=== PATIENT | male | born 1945 | race Caucasian/White ===

== ENCOUNTER → 2016-08-01 | Outpatient (CLI) | payer OTHER | LOC: BHFA 08:30 | PROVIDERS: ATTEND Internal Medicine Cardiovascular Disease | DX: I34.0 Nonrheumatic mitral (valve) insufficiency (principal) ==

== ENCOUNTER → 2016-08-12 | Outpatient (CLI) | payer OTHER | LOC: BHFA 09:45 | PROVIDERS: ATTEND Internal Medicine Cardiovascular Disease | DX: I71.2 Thoracic aortic aneurysm, without rupture (principal); I10 Essential (primary) hypertension; I48.91 Unspecified atrial fibrillation; I48.92 Unspecified atrial flutter ==

== ENCOUNTER 2016-09-05 07:33 | Day surgery (SDC) | payer OTHER ==
[2016-09-05] MEDS ORDERED: fentaNYL 100 MCG/2 ML INJ IVP ONE (07:38)
[2016-09-05] MEDS ORDERED: PROPOFOL 200 MG/20 ML VIAL IVP ONE (07:38)
[2016-09-05] MEDS ORDERED: MIDAZOLAM 2 MG/2 ML VIAL IVP ONE (07:38)
[2016-09-05] MEDS ORDERED: NS 500 ML IV ONE (07:38)
--- NOTE | 2016-09-05 07:55 | CPEKG ---
Heart Rate: 56 RR Interval: 1071 QRSD Interval: 74 QT Interval: 424 QTC Interval: 410 QRS Troy: 45 T Wave Troy: 40 EKG Severity - ABNORMAL ECG - EKG Impression: ATRIAL FIBRILLATION EKG Impression: LOW VOLTAGE IN FRONTAL LEADS EKG Impression: Agree with above. Electronically Signed By: Salazar Hall 05-Sep-2016 16:12:09
[2016-09-05 08:27] LABS: INR 1.26 (0.83-1.16); PROTIME(PATIENT) 15.8 SEC (12.0-15.0)
[2016-09-05 08:28] LABS: APTT 35.2 SEC (23.0-38.0)
[2016-09-05 08:29] LABS: ANION GAP 9 mEq/L (8-16); CALCIUM 9.7 mg/dL (8.5-10.4); CARBON DIOXIDE 28 mEq/l (22-31); CHLORIDE 106 mEq/L (97-110); CREATININE 0.9 mg/dL (0.7-1.3); GLOMERULAR FILTRATION RATE > 60; GLUCOSE 105 mg/dL (70-100); MAGNESIUM 2.1 mg/dL (1.6-2.3); POTASSIUM 4.6 mEq/L (3.5-5.2); SODIUM 143 mEq/L (134-144)
[2016-09-05] MEDS ORDERED: ATROPINE SULFATE 1 MG/10 ML SYR ONE (08:48)
--- NOTE | 2016-09-05 09:03 | PDANEPAE ---
ANE History of Present Illness Atrial arrythmia ANE Past Medical History - Cardiovascular History Hx Arrhythmias: Yes - Pulmonary History Hx Oxygen in Use at Home: No Hx Sleep Apnea: Yes - Neurologic History Neurologic History Comment: multiple sclerosis - Endocrine History Hx Diabetes: No Hypothyroid: No Hyperthyroid: No Obesity: yes - Renal History Hx Renal Disorders: Yes Renal History Comment: BPH - Chronic Pain History Chronic Pain: No ANE Patient History - Allergies Allergies/Adverse Reactions: No Known Allergies Allergy (Unverified 02/23/11 16:28) - Home Medications Home Medications: Baclofen [Baclofen 10 mg (*)] 10 mg PO TID 07/02/13 [Last Taken 07/02/13 08:00] Cholecalciferol Vit D3 [Vitamin D3 (*)] 2,000 units PO DAILY 07/02/13 [Last Taken 07/02/13 08:00] Dalfampridine [AMPYRA] 10 mg PO BID 07/02/13 [Last Taken 07/02/13 08:00] Lisinopril [Zestril 40 mg (*)] 40 mg PO DAILY 07/02/13 [Last Taken 07/02/13 08: 00] CALCIUM 09/04/16 [Last Taken Unknown] Detrol 09/04/16 [Last Taken Unknown] Flomax 09/04/16 [Last Taken Unknown] Multivitamin 09/04/16 [Last Taken Unknown] Pradaxa 09/04/16 [Last Taken Unknown] Rituxan 09/04/16 [Last Taken Unknown] Vitamin C 09/04/16 [Last Taken Unknown] - Smoking Hx Smoking Status: Former smoker ANE Labs/Vital Signs - Labs Result Diagrams: 09/05/16 08:00 - Vital Signs Height: 187.96 cm Weight: 92.986 kg ANE Anesthesia Plan Anesthesia Plan: MAC (IVGA/MAC)
[2016-09-05] MEDS ORDERED: LIDOCAINE 2% 100 MG/5 ML SYR ONE (09:15)
[2016-09-05] MEDS ORDERED: PROPOFOL 200 MG/20 ML VIAL ONE (09:15)
--- NOTE | 2016-09-05 10:03 | CPEKG ---
Heart Rate: 67 RR Interval: 896 P-R Interval: 369 QRSD Interval: 78 QT Interval: 456 QTC Interval: 482 P Saucier: 40 QRS Saucier: 32 T Wave Saucier: 24 EKG Severity - ABNORMAL ECG - EKG Impression: SINUS RHYTHM EKG Impression: SUPRAVENTRICULAR BIGEMINY EKG Impression: FIRST DEGREE AV BLOCK EKG Impression: Resolution of atrial fibrillation since September 05, 2016, 7:53 Electronically Signed By: Salazar Hall 05-Sep-2016 16:11:49
--- NOTE | 2016-09-05 10:10 | POSTANESTH ---
Post Anesthetic Evaluation Cardiovascular Status: Other, See Comment Respiratory Status: Normal, Stable Level of Consciousness/Mental Status: Can Participate in Eval Pain Control: Adequate, Prn Tx Ordered Nausea/Vomiting Control: Adequate, Prn Tx Ordered Complications Possibly Related to Anesthesia: None Noted (sinus bradycardia with PACs)
[2016-09-05] MEDS ORDERED: DABIGATRAN ETEXILATE MESYL 150 MG CAP PO ONE (10:15)
--- NOTE | 2016-09-05 13:03 | ECHO ---
[id number] + + [address] : : [facility] [address] : : [phone] + + Adult Echocardiographic Report + ------+ :Name: CHRISTINA LOPEZ DStudy Date: 09/05/2016 11:37 AM : : Hospital Admission Number: [id number] Locatio n: CVC: :: 1945 Gender: Male : :Age: 70 yrs Race: WH : :Reason For Study: Eval LV Fx : :History: Pre Cardioversion : + ------+ Left Ventricle The left ventricular ejection fraction is normal. Atria No left atrial mass or thrombus visualized. No thrombus is detected in the left atrial appendage. Right atrial size is normal. Injection of contrast documented no interatrial shunt. Mitral Valve The mitral valve is normal. There is moderate mitral regurgitation. Tricuspid Valve Normal tricuspid valve. There is trace tricuspid regurgitation. Aortic Valve The aortic valve is normal in structure and function. The aortic valve is trileaflet. There is no aortic stenosis. There is no aortic insufficiency. Pulmonic Valve The pulmonic valve is normal in structure and function. There is no pulmonic valvular regurgitation. Great Vessels The aortic root is normal size. Pericardium/Pleural There is no pericardial effusion. Conclusion A complete two-dimensional transthoracic echocardiogram was performed (2D, M-mode, Doppler and color flow Doppler). The left ventricular ejection fraction is normal. No left atrial mass or thrombus visualized. No thrombus is detected in the left atrial appendage. Injection of contrast documented no interatrial shunt. There is moderate mitral regurgitation. There is trace tricuspid regurgitation. The aortic valve is normal in structure and function. The aortic valve is trileaflet. There is no pericardial effusion. Final Reading Physician: Dr Yessenia Rodrigez electronically signed on 09/05/2016 01:02 PM Ordering Physician: Yessenia Rodrigez Performed By: Dr Yessenia Rodrigez
--- NOTE | 2016-09-05 19:33 | CPIP ---
[f rep st] INVASIVE CARDIAC PROCEDURE DATE OF PROCEDURE: 09/05/2016 PROCEDURE: Transesophageal echocardiogram-guided cardioversion. INDICATIONS: Atrial flutter. COMPLICATIONS: None apparent. DESCRIPTION OF PROCEDURE: N.p.o. status was confirmed, informed consent obtained, and time-out perf ormed. Sedation was provided by Dr. Penaloza of the anesthesia service. The IDA probe was passe d without difficulty. Images obtained. Please see separate report. In summary, normal LV systolic function. Moderate mitral regurgitation. Trace tricuspid regurgitation. Normal aortic valve. No intracardiac thrombus. No intra-atrial communication. We elected to proceed with cardioversion. The patient received a single 200 joule shock which conve rted him from atrial flutter to sinus bradycardia with PACs. A 12-lead EKG is pending. CONCLUSION: 1. Successful IDA-guided cardioversion. 2. Continue Pradaxa. 3. A 24-hour Holter monitor to ensure that he does not have significant bradycardia. 4. Follow up as scheduled. 5. The results were discussed with the patient's . /[id number]/MODL
== END 2016-09-05 11:00 | disposition home or self-care (01) ==
LOC: FCATH 07:33
PROVIDERS: ATTEND Internal Medicine Cardiovascular Disease
DX: I48.92 Unspecified atrial flutter (principal); I48.0 Paroxysmal atrial fibrillation; G35 Multiple sclerosis; I10 Essential (primary) hypertension; G47.33 Obstructive sleep apnea (adult) (pediatric); Z86.711 Personal history of pulmonary embolism; I34.0 Nonrheumatic mitral (valve) insufficiency; I36.1 Nonrheumatic tricuspid (valve) insufficiency
CPT/HCPCS: J0461; J2001; J2704

== ENCOUNTER → 2016-09-12 | Outpatient (CLI) | payer OTHER | LOC: BHFA 14:45 | PROVIDERS: ATTEND Internal Medicine Cardiovascular Disease | DX: I71.2 Thoracic aortic aneurysm, without rupture (principal); I10 Essential (primary) hypertension; I48.91 Unspecified atrial fibrillation ==

== ENCOUNTER → 2017-08-16 | Outpatient (CLI) | payer OTHER | LOC: FIMAGING 15:29 | PROVIDERS: ATTEND Neurological Surgery | DX: M48.061 Spinal stenosis, lumbar region without neurogenic claudication (principal); M53.86 Other specified dorsopathies, lumbar region ==

== ENCOUNTER → 2017-08-25 | Outpatient (CLI) | payer OTHER | LOC: BHFA 14:00 | PROVIDERS: ATTEND Internal Medicine Interventional Cardiology | DX: Z01.818 Encounter for other preprocedural examination (principal); I38 Endocarditis, valve unspecified; I48.92 Unspecified atrial flutter ==

== ENCOUNTER → 2017-08-26 | Outpatient (CLI) | payer OTHER | LOC: BHFA 09:15 | PROVIDERS: ATTEND Internal Medicine Cardiovascular Disease | DX: I34.0 Nonrheumatic mitral (valve) insufficiency (principal) ==

== ENCOUNTER 2017-09-03 07:30 | Inpatient (IN) | payer OTHER ==
--- NOTE | 2017-09-03 06:38 | PDHPUP ---
History & Physical Update H&P update statement: This history and physical update is based on an assessment of the patient which was completed after admission or registration (within 24 hours), but prior to the surgery/procedure. H&P update: H&P reviewed & patient examined, no change in patient's condition since H&P completed
[2017-09-03] MEDS ORDERED: CHLORHEXIDINE GLUC HIBICLENS 118 ML BTL TP ONE (11:18)
[2017-09-03] MEDS ORDERED: BUPIVACAINE 0.25% 30 ML SDV ONE (11:18)
[2017-09-03] MEDS ORDERED: THROMBIN (BOVINE) 5,000 UNIT VIAL TP ONE (11:18)
[2017-09-03] MEDS ORDERED: BACITRACIN 50,000 UNITS/10 ML SYR IRR ONE (11:19)
[2017-09-03] MEDS ORDERED: EPINEPHrine 1 MG/ML INJ ONE (11:19)
[2017-09-03] MEDS ORDERED: GABAPENTIN 300 MG CAP PO ONE (11:39)
[2017-09-03] MEDS ORDERED: ceFAZolin 2 GM/DEXTROSE 100 ML IV ONE (11:39)
[2017-09-03] MEDS ORDERED: ACETAMINOPHEN 500 MG TAB PO ONE (11:39)
[2017-09-03] MEDS ORDERED: LIDOCAINE 1% 2 ML INJ ID PRN (11:40)
[2017-09-03] MEDS ORDERED: LR 1,000 ML IV ONE (11:40)
--- NOTE | 2017-09-03 12:08 | PDANEPAE ---
ANE Past Medical History - Cardiovascular History Hx Hypertension: Yes Hx Arrhythmias: Yes Hx Chest Pain: No Hx Coronary Artery / Peripheral Vascular Disease: No Hx CHF / Valvular Disease: No Hx Palpitations: No Cardiovascular History Comment: A-FIB. MILD AAA - Pulmonary History Hx COPD: No Hx Asthma/Reactive Airway Disease: No Hx Recent Upper Respiratory Infection: No Hx Oxygen in Use at Home: No O2 in Use at Home (L/minute): yes Hx Sleep Apnea: Yes Pulmonary History Comment: JUAN ANTONIO INSTRUCTED TO BRING DOS WHAT APPARATUS HE USES AT HOME. PE 2013 - Neurologic History Hx Cerebrovascular Accident: No Hx Seizures: No Hx Dementia: No Neurologic History Comment: multiple sclerosis - Endocrine History Hx Diabetes: No Hypothyroid: No Hyperthyroid: No Obesity: no - Renal History Hx Renal Disorders: Yes Renal History Comment: BPH - Liver History Hx Hepatic Disorders: No - Neurological & Psychiatric Hx Hx Neurological and Psychiatric Disorders: Yes Neurological / Psychiatric History Comment: multiple sclerosis - Cancer History Hx Cancer: No - Congenital Disorder History Hx Congenital Disorders: No - GI History GERD: no Hx Gastrointestinal Disorders: No - Other Health History Other Health History: CERVICAL STENOSIS. MULTIPLE SCLEROSIS. RESTLESS LEG. OSTEOPENIA. BRUISES EASILY - Chronic Pain History Chronic Pain: No - Surgical History Prior Surgeries: ING HERNIA. LAUREN RTC REPAIR. RT KNEE SCOPE. LT PATELLA TENDON REPAIR ANE Review of Systems Review of Systems: - Exercise capacity METS (RN): 3 METS ANE Patient History - Allergies Allergies/Adverse Reactions: No Known Allergies Allergy (Unverified 02/23/11 16:28) - Home Medications Home Medications: riTUXimab [Rituxan 500mg (*)] 1 ea IV Q180D 09/04/16 [Last Taken 03/12/17] Baclofen [Baclofen 10 mg (*)] 20 mg PO TID PRN 08/21/17 [Last Taken 1 Day Ago ~ 09/02/17] Cholecalciferol Vit D3 [Vitamin D3 (*)] 1,000 units PO DAILY 08/21/17 [Last Taken 1 Week Ago ~08/27/17] Dabigatran Etexilate Mesyl [Pradaxa 150 MG (*)] 150 mg PO BID 08/21/17 [Last Taken 8 Days Ago ~08/26/17] Dalfampridine [Ampyra] 10 mg PO BID 08/21/17 [Last Taken Unknown] Herbals/Supplements -Info Only 1 ea PO DAILY 08/21/17 [Last Taken 1 Week Ago ~] Lisinopril [Zestril 20 mg (*)] 20 mg PO DAILY 08/21/17 [Last Taken 09/03/17] Mirabegron [Myrbetriq] 50 mg PO DAILY 08/21/17 [Last Taken 1 Day Ago ~09/02/17] Tamsulosin HCl [Flomax 0.4 MG (*)] 0.4 mg PO DAILY 08/21/17 [Last Taken 2 Days Ago ~09/01/17] - Anes Hx Anes Hx: no prior problems - Smoking Hx Smoking Status: Former smoker Marijuana use: No - Alcohol Use Alcohol Use: Rarely - Family Anes Hx Family Anes Hx: neg - N/A Family Hx Anesthesia Complications: NEG ANE Labs/Vital Signs - Vital Signs Height: 187.96 cm Weight: 90.718 kg ANE Physical Exam - Airway Neck exam: decreased ROM Mallampati Score: Class 3 Mouth exam: normal dental/mouth exam - Pulmonary Pulmonary: no respiratory distress, no rales or rhonchi, clear to auscultation - Cardiovascular Cardiovascular: no murmur, rub, or gallop, other (Regular rate, irregular rhythym) - ASA Status ASA Status: III ANE Anesthesia Plan Anesthesia Plan: general endotracheal anesthesia Lines/Monitors: arterial line Total IV Anesthesia: No
[2017-09-03] MEDS ORDERED: METHOCARBAMOL 750 MG TAB PO PRN (12:51)
[2017-09-03] MEDS ORDERED: ONDANSETRON 4 MG/2 ML VIAL IVP PRN ×2 (12:51→15:47)
[2017-09-03] MEDS ORDERED: morphINE PCA 30 MG/30 ML PCA IV PRN (12:51)
[2017-09-03] MEDS ORDERED: NALOXONE HCL 0.4 MG/ML INJ IVP PRN ×2 (12:51→15:47)
[2017-09-03] MEDS ORDERED: MAGNESIUM HYDROXIDE 30 ML UDCUP PO PRN (12:51)
[2017-09-03] MEDS ORDERED: HYDROmorphONE/DILAUDID 1 MG/ML INJ IVP PRN ×2 (12:51→15:47)
[2017-09-03] MEDS ORDERED: BISACODYL 10 MG SUPP PR PRN (12:51)
[2017-09-03] MEDS ORDERED: diphenhydrAMINE 25 MG CAP PO PRN (12:51)
[2017-09-03] MEDS ORDERED: POLYETHYLENE GLYCOL 3350 17 GM PKT PO PRN (12:51)
[2017-09-03] MEDS ORDERED: ONDANSETRON DISINTEGRATING 4 MG TAB PO PRN (12:51)
[2017-09-03] MEDS ORDERED: ZOLPIDEM TARTRATE 5 MG TAB PO PRN (12:51)
[2017-09-03] MEDS ORDERED: LACTULOSE 20 GM/30 ML UDCUP PO PRN (12:51)
[2017-09-03] MEDS ORDERED: HYDROCODONE/APAP 5/325 TAB PO PRN ×2 (12:51→15:47)
[2017-09-03] MEDS ORDERED: NS 1,000 ML IV SCH (13:00)
[2017-09-03] MEDS ORDERED: PROPOFOL 200 MG/20 ML VIAL ONE (13:01)
[2017-09-03] MEDS ORDERED: fentaNYL 100 MCG/2 ML INJ ONE (13:01)
[2017-09-03] MEDS ORDERED: PROPOFOL/EMULSION 500 MG/50 ML BOTTLE IV ONE (13:01)
[2017-09-03] MEDS ORDERED: REMIFENTANIL HCL 1 MG VIAL ONE ×2 (13:01→15:09)
[2017-09-03] MEDS ORDERED: ONDANSETRON 4 MG/2 ML VIAL ONE (13:06)
[2017-09-03] MEDS ORDERED: DEXAMETHASONE 4 MG/ML VIAL ONE (13:06)
[2017-09-03] MEDS ORDERED: SUCCINYLCHOLINE CHLORIDE 200 MG/10 ML SYR IVP ONE (13:06)
[2017-09-03] MEDS ORDERED: LIDOCAINE 2% 5 ML SDV ONE ×2 (13:07→13:08)
[2017-09-03] MEDS ORDERED: PHENYLEPHRINE HCL 100 MCG/ML SYR ONE (13:36)
[2017-09-03] MEDS ORDERED: ePHEDrine SULFATE 25 MG/5 ML SYR ONE ×2 (13:44→14:10)
[2017-09-03] MEDS ORDERED: GLYCOPYRROLATE 0.2 MG/1 ML VIAL ONE ×2 (13:57)
--- NOTE | 2017-09-03 14:58 | PDMN ---
Medical Necessity Medical necessity: Pt meets IP criteria per PA & MCG S-320; est los >2 mn s/p C3 /4 ACDF cpt 82689; comorbid age >65 y.o, Afib/flutter, AAA, MS, PE, HTN, fall risk; per H&P & order 09/03/17
[2017-09-03] MEDS ORDERED: ACETAMINOPHEN 500 MG TAB PO PRN (15:47)
[2017-09-03] MEDS ORDERED: PROMETHAZINE HCL 25 MG/ML INJ IVP PRN (15:47)
[2017-09-03] MEDS ORDERED: fentaNYL 100 MCG/2 ML INJ IVP PRN (15:47)
[2017-09-03] MEDS ORDERED: PHENYLEPHRINE HCL 100 MCG/ML SYR IVP PRN (15:47)
[2017-09-03] MEDS ORDERED: LR 500 ML IV PRN (15:47)
[2017-09-03] MEDS ORDERED: oxyCODONE IR 5 MG TAB PO PRN (15:47)
--- NOTE | 2017-09-03 16:20 | POSTOPPROG ---
Post Op Note Date of Operation: 09/03/17 Surgeon: Shelby Issa Assembler Brazer: Grace Anesthesiologist: Ca Anesthesia: GET(General Endotracheal), Local (Specify) Pre-op Diagnosis: cervical stenosis C34 Post-op Diagnosis: s/p cervical decompression and fusion Indication: cervical stenosis Procedure: ACDF C34 Inf/Abcess present in the surg proc area at time of surgery?: No Depth: Deep Incisional (Fascial) EBL: 50-100
--- NOTE | 2017-09-03 16:26 | SOAPPROG ---
SOAP Progress Note Assessment/Plan: Post Op Visit: S: Awake and alert. Pt with expected neck pain O: AFVSS/PERRLA/EOMI no droop CN 2-12 grossly intact +lt touch neck soft and supple NEHA x 4 CDI A/P: 71 yo male that is s/p ACDF C3/4 -orders in place -collar at all times -call with any questions or concerns -pt seen by Dr Issa as well 09/03/17 16:23 Objective: Vital Signs Temp Pulse Resp BP Pulse Ox 36.7 C 63 18 122/71 H 95 09/03/17 11:54 09/03/17 11:54 09/03/17 11:54 09/03/17 11:54 09/03/17 11:54 ICD10 Worksheet Patient Problems: Problems Problem Status Onset Cervical spinal stenosis Acute Cellulitis and abscess of hand Acute - ICD10 Problem Qualifiers (1) Cervical spinal stenosis
--- NOTE | 2017-09-03 16:34 | POSTANESTH ---
Post Anesthetic Evaluation Cardiovascular Status: Normal, Stable Respiratory Status: Normal, Stable Level of Consciousness/Mental Status: Can Participate in Eval Pain Control: Adequate, Prn Tx Ordered Nausea/Vomiting Control: Adequate, Prn Tx Ordered Complications Possibly Related to Anesthesia: None Noted
[2017-09-03] MEDS: ACETAMINOPHEN 500 MG TAB PO SCH ×2 (17:51→21:43)
--- NOTE | 2017-09-03 17:51 | GOP ---
[f rep st] OPERATIVE REPORT DATE OF OPERATION: 09/03/2017 SURGEON: Nikkie Issa MD NEUROSURGEON: Nikkie Issa MD PLATFORM SOFTWARE ENGINEER: Stefan Edwadrs PA-C PREOPERATIVE DIAGNOSIS: Multiple sclerosis, severe cervical myelopathy and stenosis at C3-4. POSTOPERATIVE DIAGNOSIS: Multiple sclerosis, severe cervical myelopathy and stenosis at C3-4. PROCEDURE PERFORMED: Anterior cervical diskectomy with decompression and arthrodesis C3-4 (31420), p lacement of biomechanical intervertebral device C3-4 (02496), anterior cervical fusion C3-4 (04642), microscope, same incision bone graft harvest. FINDINGS: ESTIMATED BLOOD LOSS: 25 cc. INDICATIONS: The patient is an elderly gentleman with long history of multiple sclerosis, well manag ed medically who was having progressive difficulty with the left arm, and on physical exam was becomi ng more myelopathic. An MRI was performed demonstrating severe cervical stenosis at C3-4 with eviden ce of cord compression and myelomalacia. While indeed he did have MS, it was my feeling that the cer vical spinal compression was sufficient to warrant surgery. Despite the risks of such surgery, the p atient with MS, I felt that the benefit of surgery outweigh those risks and I suggested surgery. His neurologist agreed and thought that he should pursue cervical decompression. He actually had very s ignificant multilevel cervical disease that was much worse down at C5-6, C6-7, but the area of greate st spinal cord compression and central stenosis was at C3-4. I wanted to simply address this area fi rst. I know and explained to him that in time he may need additional surgery at the other levels. H e knew there was risk of pseudoarthrosis, esophageal injury, carotid injury, recurrent laryngeal nerv e injury, nerve injury, vascular injury, the possible need for future surgery. He knew there was a c jameson that it could fail to improve his symptoms. He also knew there was a chance that he prevertebr al hematoma, and airway trouble, as well as the risk of spinal cord injury, paralysis. He wanted to proceed despite the risks. DESCRIPTION OF PROCEDURE: The patient was taken to the operating room, placed in the supine position . An arterial line was placed. After placement of an arterial line, we made efforts to keep his sara n arterial pressure above 85 throughout the surgery. He was then intubated and put under general ane sthesia. Motor evoked potentials and SSEP these were performed prior to positioning and these were c hecked throughout the surgery, and they in fact did remain stable throughout the remainder of the betsey e. He had a significant cervicothoracic kyphosis that lifted his head up off the bed. We gently extende d his occiput, but kept the neck in a normal kyphotic position. We positioned the table with a littl e bit of Trendelenburg position so that would improve our surgical angle to the C3-4 disk in the sett ing of his kyphosis. His legs were slightly bent. Care was taken to pad all points of contact. He was sterilely prepped and draped. We made a right-sided transverse incision that was 3 cm in length. The subcutaneous tissue was disse cted using Bovie cautery down through the fascia. We opened the platysma and then used a combination of sharp and blunt dissection to work our way medial to the carotid sheath and lateral to the strap muscles down to the prevertebral space. An x-ray was taken. We dissected the longus colli muscles off the spine at C3-4, placed a self-retaining retractor, put d istraction pin into the vertebral bodies at C3-4. We distracted and shot an x-ray. Under the micros cope, we removed the C3-4 disk. We then drilled a large amount of subchondral bone for autologous gr afting purposes. We then opened the posterior longitudinal ligament and decompressed the thecal sac centrally and then worked our way into the neural foramen for the exiting C4 root. A nice decompress ion was obtained. There was severe stenosis and we got a great decompression of the spinal canal. We chose an 8 mm large PEEK intervertebral device manufactured by [employer]. It was packed with bone autograft and placed into the disk space. Motor and somatosensory-evoked potentials were stable. W e then placed a 21 mm Zevo plate, placed a single screw at C3, a single screw at C4, shot an x-ray. We then placed the remaining screws in place and locked all 4 screws according to company specificati on. We then shot a final x-ray confirming the good placement of the hardware. We achieved meticulous hemostasis. We took and placed 6 cc of dysphagia study drug into the preverte bral space and then closed the platysma with interrupted Vicryl sutures. The skin was closed with in terrupted Vicryl sutures. Steri-Strips were applied. The patient was reversed from anesthesia, extu bated, and transferred to recovery room in stable condition. There were no complications. COMPLICATIONS: None. INSTRUMENTATION USED: [employer] Zevo plate. It was a 21 mm plate and we used 15 mm screws. We used an 8 x 6 cage. /[id number]/MODL
[2017-09-03] MEDS: ceFAZolin 2 GM/DEXTROSE 100 ML IV SCH (21:43)
[2017-09-03] MEDS: SENNOSIDES/DOCUSATE SODIUM TAB PO SCH (21:44)
[2017-09-03] MEDS: FAMOTIDINE 20 MG TAB PO SCH (21:44)
[2017-09-04] MEDS: ACETAMINOPHEN 500 MG TAB PO SCH (06:01)
[2017-09-04] MEDS: ceFAZolin 2 GM/DEXTROSE 100 ML IV SCH (06:04)
[2017-09-04] MEDS: SENNOSIDES/DOCUSATE SODIUM TAB PO SCH (08:28)
[2017-09-04] MEDS: FAMOTIDINE 20 MG TAB PO SCH (08:29)
[2017-09-04] MEDS ORDERED: BACLOFEN 10 MG TAB PO PRN (09:17)
--- NOTE | 2017-09-04 09:22 | NEUSURGPN ---
Date of Surgery: 09/03/17 Post Op Day: 1 Assessment/Plan: A/P: 71 yo male that is s/p ACDF C3/4 POD#1 Plan: -PT/OT/ST eval -collar at all times -Xrays pending -Ok to dc home once seen by therapies and xrays complete -call with any questions or concerns -pt seen by Dr Issa as well Subjective: Doing well, no complaints Objective: AxO x3 PERRLA 5/[address] Dressing/incision CDI Neuro Check Frequency: per routine - Physician Discussed Patient with : Luis Manuel Patient Seen by : Luis Manuel Neurosurgery Physical Exam - Vitals, I&O, Labs I and O 09/03/17 09/04/17 09/05/17 05:59 05:59 05:59 Intake Total 2380 Output Total 1385 Balance 995 Weight 90.718 kg Intake: Oral (ml) 250 IV Intake (ml) 1300 IV Infused (ml) 830 Ns 1,000 ml @ 100 mls/hr 730 IV CONT JORGE Rx#: [id number] ceFAZolin 2 GM/DEXTROSE 100 100 ml @ 200 mls/hr IV Q8HRS JORGE Rx#:[id number] Output: Urine (ml) 1350 Catheter 1100 Urinal 250 Estimated Blood Loss (ml) 35 Vital Signs Temp Pulse Resp BP Pulse Ox 36.4 C 64 14 126/83 H 95 09/04/17 07:22 09/04/17 07:22 09/04/17 07:22 09/04/17 07:22 09/04/17 07:22 ICD10 Worksheet Patient Problems: Problems Problem Status Onset Cervical spinal stenosis Acute Cellulitis and abscess of hand Acute
[2017-09-04 12:49] VITALS: BP 106/67
--- NOTE | 2017-09-04 13:29 | ASMTLACE ---
LACE Length of stay for Answers: Less than 1 day current admission Acuity / Level of Answers: Yes Care: Did the patient have an inpatient admission? Comorbidities - select Answers: Other Notes: HTN; AFib; Multiple all that apply scleorsis # of Emergency department Answers: 0 visits in the last 6 months Score: 4 Date Signed: 09/04/2017 01:28 PM Electronically Signed By:Padmini Alcantara RN
[2017-09-04] MEDS ORDERED: TAMSULOSIN HCL 0.4 MG CAP PO SCH (21:00)
[2017-09-04] MEDS ORDERED: Dalfampridine [Ampyra] 10 MG PO SCH (21:00)
[2017-09-05] MEDS ORDERED: CHOLECALCIFEROL VIT D3 1,000 UNITS TAB PO SCH (09:00)
[2017-09-05] MEDS ORDERED: LISINOPRIL 20 MG TAB PO SCH (09:00)
[2017-09-05] MEDS ORDERED: Mirabegron [Myrbetriq] 50 MG PO SCH (09:00)
[2017-09-06] MEDS ORDERED: ENOXAPARIN 40 MG/0.4 ML SYR SC SCH (09:00)
--- NOTE | 2017-09-16 11:23 | GDS ---
[f rep st] DISCHARGE SUMMARY PRIMARY DIAGNOSIS: Multiple sclerosis, severe cervical myelopathy, stenosis at C3-4. OPERATION/PROCEDURE: Anterior cervical diskectomy and fusion at C3-4 with placement of biomechanical intervertebral device. That occurred with Dr. Davide Issa on 09/03/2017, at [facility] HOSPITAL COURSE: Mr. Roman is an elderly gentleman with long history of multiple sclerosis. This wa s well managed medically. He is having progressive difficulty with his left arm. On physical exam, he became more myelopathic. An MRI that was performed demonstrated severe critical stenosis at C3-4, and recommendation for decompression of the spinal cord was given. He understood the risks of surge ry. He wished to proceed. He tolerated the procedure well. He was admitted postoperatively. On po stoperative day #1, he underwent x-rays of the cervical spine, which showed anatomic alignment follow ing the ACDF at C3-4 with no complications noted. On postoperative day 1, he had met criteria, had w orked with PT, OT and Speech Therapy. He was using his collar as directed. They cleared him from [facility] as well as nursing for discharge home. He tolerated well. He was on oral pain medicine, was eating and drinking fine. He was discharged without incident. CONSULTS: None. COMPLICATIONS: None. DISCHARGE CONDITION: Stable and improved. DISCHARGE INSTRUCTIONS: Standard discharge instructions given to the patient following instrumented cervical fusion. We talked about worsening symptoms, new pain, weakness, numbness, tingling, loss of bowel or bladder control, problems with gait or balance. He will wear his collar as directed. We t alked about avoiding any anti-inflammatory drugs. No bending or twisting. He was instructed on warn ing signs and will follow up with us likely in 2 weeks for postoperative visit and then at 2 months w ith x-rays, 3-6 months, 9 months to a year, a [id number], and 2 years with x-rays and clinically appropriate. All questions and concerns were answered. Patient understands and agrees. /[id number]/MODL
== END 2017-09-04 15:24 | disposition home or self-care (01) | DRG 473 ==
LOC: F3N 11:15
PROVIDERS: ADMIT Neurological Surgery; ATTEND Neurological Surgery
PROC: 00NW0ZZ Release Cervical Spinal Cord, Open Approach (ICD-10-PCS; principal; 2017-09-03 13:15)
PROC: 01N10ZZ Release Cervical Nerve, Open Approach (ICD-10-PCS; principal; 2017-09-03 13:15)
PROC: 0RT30ZZ Resection of Cervical Vertebral Disc, Open Approach (ICD-10-PCS; principal; 2017-09-03 13:15)
PROC: 0RG10A0 Fusion of Cervical Vertebral Joint with Interbody Fusion Device, Anterior Approach, Anterior Column, Open Approach (ICD-10-PCS; principal; 2017-09-03 13:15)
DX: M50.00 Cervical disc disorder with myelopathy, unspecified cervical region (principal); G35 Multiple sclerosis; I10 Essential (primary) hypertension; I48.91 Unspecified atrial fibrillation; G47.33 Obstructive sleep apnea (adult) (pediatric); N40.0 Benign prostatic hyperplasia without lower urinary tract symptoms; Z87.891 Personal history of nicotine dependence
CPT/HCPCS: 92610-GN; 97162-GP; 97165-GO; 97535-GO; C1713; G8978-GP-CJ; G8979-GP-CI; G8987-GO-CI; G8988-GO-CI; G8989-GO-CI; G8996-GN-CI; G8997-GN-CI; J0171; J0330; J0690; J1100; J2370; J2405; J2704; J3010

== ENCOUNTER 2017-09-27 16:57 | Observation (INO) | payer OTHER ==
[2017-09-27] MEDS ORDERED: NS 1,000 ML IV ONE (17:07)
--- NOTE | 2017-09-27 17:07 | EDPHY ---
H & P Time Seen by Provider: 09/27/17 16:58 HPI/ROS: CHIEF COMPLAINT: Syncope HISTORY OF PRESENT ILLNESS: Patient is a history of atrial fibrillation, was seen by Dr. Yessenia Rodrigez in the office recently with the echo that the patient reports was unremarkable. He was seen by myself earlier this morning for urinary retention had a Magallanes catheter placed. He was also having some episodes of diarrhea this morning without melena or red blood per rectum. He went home was sitting down and felt woozy and then proceeded to pass out hitting his chin on a piece of furniture. Brought in by EMS and still feels woozy or lightheaded. Syncope not associated with seizure activity. No chest pain or shortness of breath. REVIEW OF SYSTEMS: Eye: no change in vision ENT: no sore throat, no dental symptoms or loose tooth Cardiac: HPI Pulmonary: no cough or SOB Abdomen: no vomiting, or abdominal pain, did have diarrhea as above, feels a bit dehydrated Musculoskeletal: no back pain Skin: no rash Neuro: no headache Constitutional: no fever : HPI A comprehensive 10 point review of systems is otherwise negative aside from elements mentioned in the history of present illness. PAST MEDICAL HISTORY: Includes BPH with catheter, cervical spine fusion, AFib on Pradaxa, MS Social history: General Appearance: Alert and conversant, cooperative. Eyes: No scleral icterus. ENT, Mouth: Normal mucous membranes. No hemotympanum, left facial abrasion just below his lip, did not bite his tongue. Respiratory: Normal respiratory effort, breath sounds equal, lungs are clear to auscultation. Cardiovascular: Irregular, not tachycardic, no murmur. Gastrointestinal: Abdomen is soft and non tender. Neurological: Alert, face symmetric, normal motor and sensory in extremities. Cervical spine in a collar, no midline spinal tenderness. Skin: Left chin abrasion, no other laceration or abrasion. Musculoskeletal: No peripheral edema. No extremity bony tenderness or spinal tenderness. Psychiatric: Not agitated. Emergency Department course/MDM: EKG and troponin, head CT for fall with facial/head trauma on Pradaxa, labs to include electrolytes. IV normal saline hydration. More likely due to dehydration from recent diarrhea. 1816: Negative head CT per Dr. Keen. Results discussed with the patient, he would like to go home, he tried to walk but was really unable. He still feels woozy and lightheaded and is uncomfortable with discharge. 1926: Discussed with Dr. Carmona, admission for syncope in a patient with underlying cardiac disease including atrial fibrillation. Smoking Status: Former smoker Constitutional: Initial Vital Signs Temperature (C) 36.7 C 09/27/17 16:57 Heart Rate 87 09/27/17 16:57 Respiratory Rate 20 09/27/17 16:57 Blood Pressure 113/67 09/27/17 16:57 O2 Sat (%) 94 09/27/17 16:57 O2 Delivery Mode Room Air Allergies/Adverse Reactions: rituximab Allergy (Intermediate, Verified 09/27/17 17:07) Rash Home Medications: Medication Instructions Recorded Baclofen [Baclofen 10 mg (*)] 20 mg PO TID PRN 08/21/17 Cholecalciferol Vit D3 [Vitamin D3 1,000 units PO DAILY 08/21/17 (*)] Dalfampridine [AMPYRA] 10 mg PO BID 08/21/17 Herbals/Supplements -Info Only 1 ea PO DAILY 08/21/17 Lisinopril [Zestril 20 mg (*)] 20 mg PO DAILY 08/21/17 Mirabegron [Myrbetriq] 50 mg PO HS 08/21/17 Tamsulosin HCl [Flomax 0.4 MG (*)] 0.4 mg PO DAILY 08/21/17 Acetaminophen [Tylenol ES 500 mg 1,000 mg PO Q8HRS tab 09/04/17 (*)] Dabigatran Etexilate Mesyl 150 mg PO BID #0 09/04/17 [Pradaxa 150 MG (*)] Ascorbic Acid [Vitamin C 500 mg 500 mg PO BID 09/27/17 (*)] Psyllium Husk (with Sugar) 1 each PO DAILY 09/27/17 [Metamucil Packet] Medical Decision Making - Diagnostics EKG Interpretation: 12-lead EKG interpreted by me; official reading is in trace master. My interpretation is atrial fibrillation rate 86, no ischemic changes. Imaging Results: Imaging Impressions Head CT 09/27/17 17:07 Impression: 1. Extensive chronic white matter changes in this patient with previously documented MS. 2. Age-related cerebral cortical atrophy. 3. There is no acute intracranial abnormality identified on this unenhanced CT evaluation. If there is further clinical concern regarding the patient's symptoms, MR imaging is suggested, if not otherwise contraindicated. Findings were discussed with IMANI HOFFMAN MD at 18:12, on 09/27/2017. Imaging: Discussed imaging studies w/ at home independent call center agent Radiologist, I viewed and interpreted images myself Differential Diagnosis: Differential diagnosis considered for syncope including but not limited to vasovagal syncope, arrhythmia, dehydration, and blood loss. Consult/Admit Bed Type: [place] [id number] - Data Points Laboratory Results: Laboratory Results 09/27/17 17:00 09/27/17 17:00 09/27/17 09/27/17 09/27/17 17:06 17:00 17:00 WBC 11.11 10^3/uL H 10^3/uL (3.80-9.50) RBC 4.38 10^6/uL L 10^6/uL (4.40-6.38) Hgb 14.1 g/dL g/dL (13.7-17.5) Hct 41.2 % % (40.0-51.0) MCV 94.1 fL fL (81.5-99.8) MCH 32.2 pg pg (27.9-34.1) MCHC 34.2 g/dL g/dL (32.4-36.7) RDW 13.1 % % (11.5-15.2) Plt Count 238 10^3/uL 10^3/uL (150-400) MPV 10.5 fL fL (8.7-11.7) Neut % (Auto) Not Reported Lymph % (Auto) Not Reported [place] % (Auto) Not Reported Eos % (Auto) Not Reported Baso % (Auto) Not Reported Nucleat RBC Rel Count Not Reported Absolute Neuts (auto) Not Reported Absolute Lymphs (auto) Not Reported Absolute Monos (auto) Not Reported Absolute Eos (auto) Not Reported Absolute Basos (auto) Not Reported Absolute Nucleated RBC Not Reported Immature Gran % Not Reported Seg Neutrophils % 82.0 % % Band Neutrophils % 0 % % Lymphocytes % 3.0 % % Monocytes % 12.0 % % Eosinophils % 2.0 % % Basophils % 1.0 % % Metamyelocytes % 0 % % Myelocytes % 0 % % Promyelocytes % 0 % % Blast Cells % 0 % % Immature Gran # Not Reported Absolute Seg Neuts 9.11 10^/uL H 10^/uL (1.70-6.50) Absolute Band Neuts 0.00 10^3/uL 10^3/uL (0.00-0.70) Absolute Lymphocytes 0.33 10^3/uL L 10^3/uL (1.00-3.00) Absolute Monocytes 1.33 10^3/uL H 10^3/uL (0.30-0.80) Absolute Eosinophils 0.22 10^3/uL 10^3/uL (0.03-0.40) Absolute Basophils 0.11 10^3/uL H 10^3/uL (0.02-0.10) Absolute Metamyelocyte 0.00 10^3/mL 10^3/mL (0.00-0.00) Absolute Myelocytes 0.00 10^3/mL 10^3/mL (0.00-0.00) Absolute Promyelocytes 0.00 10^3/uL 10^3/uL (0.00-0.00) Absolute Plasma Cells 0.00 10^3/uL 10^3/uL (0.00-0.00) Nucleated RBCs 0 /100 WBC /100 WBC (0-0) RBC/WBC/PLT Morphology NORMAL (NORMAL) Absolute Blast Cells 0.00 10^3/uL 10^3/uL (0.00-0.00) Plasma Cells % 0 % % Platelet Estimate ADEQUATE (ADEQ) Sodium 142 mEq/L mEq/L (135-145) Potassium 4.9 mEq/L mEq/L (3.3-5.0) Chloride 104 mEq/L mEq/L (97-110) Carbon Dioxide 27 mEq/l mEq/l (22-31) Anion Gap 11 mEq/L mEq/L (8-16) BUN 17 mg/dL mg/dL (7-23) Creatinine 0.8 mg/dL mg/dL (0.7-1.3) Estimated GFR > 60 Glucose 104 mg/dL H mg/dL (70-100) Calcium 9.8 mg/dL mg/dL (8.5-10.4) POC Troponin I 0.00 ng/mL ng/mL (0.00-0.08) Medications Given: Discontinued Medications Sodium Chloride (Ns) 1,000 mls @ 0 mls/hr IV EDNOW ONE; Wide Open PRN Reason: Protocol Stop: 09/27/17 17:08 Last Admin: 09/27/17 17:16 Dose: 1,000 mls Point of Care Test Results: Chemistry 09/27/17 17:06 POC Troponin I 0.00 ng/mL ng/mL (0.00-0.08) Departure - Departure Disposition: [facility] Inpatient Acute Clinical Impression: Syncope Qualifiers: Syncope type: unspecified Qualified Code(s): R55 - Syncope and collapse Condition: Good
--- NOTE | 2017-09-27 17:10 | CPEKG ---
Heart Rate: 86 RR Interval: 698 QRSD Interval: 76 QT Interval: 372 QTC Interval: 445 QRS [place]: 22 T Wave [place]: 26 EKG Severity - ABNORMAL ECG - EKG Impression: ATRIAL FIBRILLATION, V-RATE 61-99 Electronically Signed By: Albaro Chan 27-Sep-2017 17:16:56
[2017-09-27 17:15] LABS: PLATELET COUNT 238 10^3/uL (150-400)
[2017-09-27] MEDS ORDERED: ONDANSETRON 4 MG/2 ML VIAL IVP PRN (19:36)
[2017-09-27] MEDS ORDERED: ACETAMINOPHEN 325 MG TAB PO PRN (19:36)
[2017-09-27] MEDS ORDERED: ONDANSETRON DISINTEGRATING 4 MG TAB PO PRN (19:36)
[2017-09-27] MEDS ORDERED: NS 1,000 ML IV SCH (19:45)
[2017-09-27] MEDS ORDERED: BACLOFEN 20 MG TAB PO PRN (20:31)
--- NOTE | 2017-09-27 20:39 | PDGENHP ---
History and Physical - Chief Complaint Acute syncope - History of Present Illness Primary care provider: Dr. Bennett Primary paper cone machine operator: Dr. Rodrigez Primary neurosurgeon: Dr. Issa Primary multiple sclerosis specialist: Dr. Ledezma Primary urologist: Dr. Segura HPI: 71-year-old male presenting with acute syncope characterized as complete loss of consciousness with duration of approximately 1 min and onset of symptoms on the afternoon of presentation. The patient's witnessed the event, she reports that the patient reported feeling "woozy" and his eyes rolled back in his head, seemingly unconscious, and she lowered him to the floor after he sustained very mild trauma to his chin, striking it on the edge of a table. She reports he was unconscious for approximately 1 min, and then experienced some post syncopal confusion upon awakening. He did not experience any seizure-like movements and did not have any bowel incontinence. His symptoms occurred in the context of approximately 2 days of worsening urinary retention with associated symptoms of urgency, hesitancy, suprapubic pain, resulting in him presenting to our emergency department on the morning of presentation and bladder scan demonstrating approximately 1 L of urine in the bladder. A Chung catheter was placed, which alleviated his discomfort. The patient returned home with a catheter bag, and felt particularly fatigued for the rest of the day, as he had not had very effective sleep on either of the evenings prior. He reported 1 very large bowel movement on the night prior to arrival, and then subsequent small loose bowel movements throughout the course of the day. It should be noted that the patient has been taking all of his home medications, including Flomax on the morning of presentation. He has not recently made any medication adjustments. History Information - Allergies/Home Medication List Allergies/Adverse Reactions: rituximab Allergy (Intermediate, Verified 09/27/17 17:07) Rash Home Medications: Baclofen [Baclofen 10 mg (*)] 20 mg PO TID PRN 08/21/17 [Last Taken 09/27/17 AM] Cholecalciferol Vit D3 [Vitamin D3 (*)] 1,000 units PO DAILY 08/21/17 [Last Taken 09/27/17] Dalfampridine [AMPYRA] 10 mg PO BID 08/21/17 [Last Taken 09/27/17 AM] Herbals/Supplements -Info Only 1 ea PO DAILY 08/21/17 [Last Taken 1 Week Ago ~] Lisinopril [Zestril 20 mg (*)] 20 mg PO DAILY 08/21/17 [Last Taken 09/27/17 AM] Mirabegron [Myrbetriq] 50 mg PO HS 08/21/17 [Last Taken 09/26/17 PM] Tamsulosin HCl [Flomax 0.4 MG (*)] 0.4 mg PO DAILY 08/21/17 [Last Taken 09/27/17 ] Ascorbic Acid [Vitamin C 500 mg (*)] 500 mg PO BID 09/27/17 [Last Taken Unknown] Psyllium Husk (with Sugar) [Metamucil Packet] 1 each PO DAILY 09/27/17 [Last Taken 09/27/17 AM] I have personally reviewed and updated: family history, medical history, social history, surgical history - Past Medical History atrial fibrillation (And atrial flutter, paroxysmal, last cardioversion August of 2016), hypertension Additional medical history: JUAN ANTONIO on nocturnal oxygen. Multiple sclerosis. Cervical stenosis. Severe finger cellulitis in June of 2013. BPH - Surgical History Additional surgical history: 09/03/2017 ACDF to C3-C4. Hernia repair. Rotator cuff surgery x3. Right knee surgery x2. 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 Review of Systems Review of Systems: ROS: 10pt was reviewed & negative except for what was stated in HPI & below EENMT: Reports: sore throat Cardiac: Reports: syncope Gastrointestinal: Reports: abdominal pain, diarrhea Genitourinary: Reports: frequency, urgency Physical Exam Physical Exam: Temp Pulse Resp BP Pulse Ox 36.7 C 90 18 129/99 H 98 09/27/17 18:26 09/27/17 19:37 09/27/17 19:37 09/27/17 19:37 09/27/17 19:37 Constitutional: no apparent distress, not in pain, chronically ill appearing, No uncomfortable Eyes: PERRL, anicteric sclera, EOMI Ears, Nose, Mouth, Throat: moist mucous membranes, hearing normal, ears appear normal, no oral mucosal ulcers Cardiovascular: irregularly irregular, tachycardia, edema (1+ bilateral lower extremities), No systolic murmur Respiratory: no respiratory distress, no rales or rhonchi, clear to auscultation Gastrointestinal: normoactive bowel sounds, soft, non-tender abdomen, no palpable masses, No distension Genitourinary: no bladder fullness, no bladder tenderness, chung in urethra Skin: warm, other (Stasis dermatitis bilateral lower extremities), No erythema Neurologic: AAOx3, No facial droop Psychiatric: interacting appropriately, not anxious, not encephalopathic, thought process linear Lab Data & Imaging Review 09/27/17 17:00 09/27/17 17:00 WBC 11.11 10^3/uL (3.80-9.50) H 09/27/17 17:00 RBC 4.38 10^6/uL (4.40-6.38) L 09/27/17 17:00 Hgb 14.1 g/dL (13.7-17.5) 09/27/17 17:00 Hct 41.2 % (40.0-51.0) 09/27/17 17:00 MCV 94.1 fL (81.5-99.8) 09/27/17 17:00 MCH 32.2 pg (27.9-34.1) 09/27/17 17:00 MCHC 34.2 g/dL (32.4-36.7) 09/27/17 17:00 RDW 13.1 % (11.5-15.2) 09/27/17 17:00 Plt Count 238 10^3/uL (150-400) 09/27/17 17:00 MPV 10.5 fL (8.7-11.7) 09/27/17 17:00 Neut % (Auto) Not Reported 09/27/17 17:00 Lymph % (Auto) Not Reported 09/27/17 17:00 [place] % (Auto) Not Reported 09/27/17 17:00 Eos % (Auto) Not Reported 09/27/17 17:00 Baso % (Auto) Not Reported 09/27/17 17:00 Nucleat RBC Rel Count Not Reported 09/27/17 17:00 Absolute Neuts (auto) Not Reported 09/27/17 17:00 Absolute Lymphs (auto) Not Reported 09/27/17 17:00 Absolute Monos (auto) Not Reported 09/27/17 17:00 Absolute Eos (auto) Not Reported 09/27/17 17:00 Absolute Basos (auto) Not Reported 09/27/17 17:00 Absolute Nucleated RBC Not Reported 09/27/17 17:00 Immature Gran % Not Reported 09/27/17 17:00 Seg Neutrophils % 82.0 % 09/27/17 17:00 Band Neutrophils % 0 % 09/27/17 17:00 Lymphocytes % 3.0 % 09/27/17 17:00 Monocytes % 12.0 % 09/27/17 17:00 Eosinophils % 2.0 % 09/27/17 17:00 Basophils % 1.0 % 09/27/17 17:00 Metamyelocytes % 0 % 09/27/17 17:00 Myelocytes % 0 % 09/27/17 17:00 Promyelocytes % 0 % 09/27/17 17:00 Blast Cells % 0 % 09/27/17 17:00 Immature Gran # Not Reported 09/27/17 17:00 Absolute Seg Neuts 9.11 10^/uL (1.70-6.50) H 09/27/17 17:00 Absolute Band Neuts 0.00 10^3/uL (0.00-0.70) 09/27/17 17:00 Absolute Lymphocytes 0.33 10^3/uL (1.00-3.00) L 09/27/17 17:00 Absolute Monocytes 1.33 10^3/uL (0.30-0.80) H 09/27/17 17:00 Absolute Eosinophils 0.22 10^3/uL (0.03-0.40) 09/27/17 17:00 Absolute Basophils 0.11 10^3/uL (0.02-0.10) H 09/27/17 17:00 Absolute Metamyelocyte 0.00 10^3/mL (0.00-0.00) 09/27/17 17:00 Absolute Myelocytes 0.00 10^3/mL (0.00-0.00) 09/27/17 17:00 Absolute Promyelocytes 0.00 10^3/uL (0.00-0.00) 09/27/17 17:00 Absolute Plasma Cells 0.00 10^3/uL (0.00-0.00) 09/27/17 17:00 Nucleated RBCs 0 /100 WBC (0-0) 09/27/17 17:00 RBC/WBC/PLT Morphology NORMAL (NORMAL) 09/27/17 17:00 Absolute Blast Cells 0.00 10^3/uL (0.00-0.00) 09/27/17 17:00 Plasma Cells % 0 % 09/27/17 17:00 Platelet Estimate ADEQUATE (ADEQ) 09/27/17 17:00 Sodium 142 mEq/L (135-145) 09/27/17 17:00 Potassium 4.9 mEq/L (3.3-5.0) 09/27/17 17:00 Chloride 104 mEq/L (97-110) 09/27/17 17:00 Carbon Dioxide 27 mEq/l (22-31) 09/27/17 17:00 Anion Gap 11 mEq/L (8-16) 09/27/17 17:00 BUN 17 mg/dL (7-23) 09/27/17 17:00 Creatinine 0.8 mg/dL (0.7-1.3) 09/27/17 17:00 Estimated GFR > 60 09/27/17 17:00 Glucose 104 mg/dL (70-100) H 09/27/17 17:00 Calcium 9.8 mg/dL (8.5-10.4) 09/27/17 17:00 POC Troponin I 0.00 ng/mL (0.00-0.08) 09/27/17 17:06 Visualized and Interpreted EKG results: Yes EKG Interpretation: Positive for: other (Atrial fibrillation with Q-wave in lead 3, poor R-wave progression in lead V2) Assessment & Plan Assessment: 71-year-old male presents with acute syncope Plan: 1. Syncope. Acute, new problem this provider, further workup indicated. Potential etiologies include hypovolemia status post diarrhea verses fatigue status post poor night's sleep with recent urinary retention verses infection ( possible upper respiratory tract infection, possible C diff, possible urinary tract infection) verses carotid stenosis (either by plaque or externally after ACDF) verses symptomatic AFib RVR -check respiratory viral panel, check C diff PCR, check urinalysis -get carotid ultrasounds -order outside records, most recent echocardiogram from [facility] which the patient had performed prior to his ACDF surgery -monitor on telemetry, the patient is currently experiencing atrial fibrillation with a rate around 100 -repeat troponin level in a.m. -get orthostatic vital signs, now and in a.m. After receiving IV fluids -engage patient in physical occupational therapy 2. Cervical stenosis. Chronic, reviewed outside records including operative note by Dr. Davide Issa from 09/03/2017, reports no complications -continue collar -will obtain carotid ultrasounds as above to ensure no external carotid compression from any swelling 3. Hypertension. Continue home medication 4. Multiple sclerosis. Continue home medication 5. Urinary retention. Acute, most likely secondary to BPH, continue home medication and indwelling Chung catheter -recommend outpatient follow-up with Dr. Segura, patient is planning on doing so 6. Paroxysmal atrial fibrillation. Continue Pradaxa, patient is not currently on any rate controlling agents, he reports that it is asymptomatic to him and Dr. Rodrigez has not recommended rate-controlling agents recently -most recent IDA/DC cardioversion was in August 2016 -currently does not require cardioversion, monitor rate on telemetry Diet. Regular Prophylaxis. High risk patient, on Pradaxa Code. Full Disposition. Anticipated discharge 09/28, pending further workup as outlined above. I have discussed patient's presentation with Dr. Albaro Chan, he and I both agree the patient warrants additional workup as outlined above given his sudden loss of consciousness in the context of numerous symptoms.
[2017-09-27] MEDS ORDERED: Mirabegron [Myrbetriq] 50 MG PO SCH (21:00)
[2017-09-27] MEDS: DABIGATRAN ETEXILATE MESYL 150 MG CAP PO SCH (23:02)
[2017-09-27] MEDS: ASCORBIC ACID 500 MG TAB PO SCH (23:02)
[2017-09-27] MEDS: Dalfampridine [Ampyra] 10 MG PO SCH (23:12)
[2017-09-28 06:16] LABS: PLATELET COUNT 203 10^3/uL (150-400)
[2017-09-28] MEDS: DABIGATRAN ETEXILATE MESYL 150 MG CAP PO SCH (08:58)
[2017-09-28] MEDS: ASCORBIC ACID 500 MG TAB PO SCH (08:58)
[2017-09-28] MEDS ORDERED: PSYLLIUM METAMUCIL 1 PKT PO SCH (09:00)
[2017-09-28] MEDS ORDERED: CHOLECALCIFEROL VIT D3 1,000 UNITS TAB PO SCH (09:00)
[2017-09-28] MEDS ORDERED: Herbals/Supplements -Info Only PO SCH (09:00)
[2017-09-28] MEDS ORDERED: TAMSULOSIN HCL 0.4 MG CAP PO SCH (09:00)
[2017-09-28] MEDS ORDERED: LISINOPRIL 20 MG TAB PO SCH (09:00)
[2017-09-28] MEDS: Dalfampridine [Ampyra] 10 MG PO SCH (09:59)
[2017-09-28 13:07] VITALS: BP 136/76
--- NOTE | 2017-09-28 13:28 | PDIAF ---
- Diagnosis Diagnosis: syncope,UTI, urinary retention, MS, Code Status: Full Code - Medication Management Discharge Medications: Medications to Continue on Transfer Baclofen [Baclofen 10 mg (*)] 20 mg PO TID PRN 08/21/17 [Last Taken 09/27/17 AM] Cholecalciferol Vit D3 [Vitamin D3 (*)] 1,000 units PO DAILY 08/21/17 [Last Taken 09/27/17] Dalfampridine [AMPYRA] 10 mg PO BID 08/21/17 [Last Taken 09/27/17 AM] Herbals/Supplements -Info Only 1 ea PO DAILY 08/21/17 [Last Taken 1 Week Ago ~] Lisinopril [Zestril 20 mg (*)] 20 mg PO DAILY 08/21/17 [Last Taken 09/27/17 AM] Mirabegron [Myrbetriq] 50 mg PO HS 08/21/17 [Last Taken 09/26/17 PM] Tamsulosin HCl [Flomax 0.4 MG (*)] 0.4 mg PO DAILY 08/21/17 [Last Taken 09/27/17 ] Acetaminophen [Tylenol ES 500 mg (*)] 1,000 mg PO Q8HRS tab 09/04/17 [Last Taken Unknown] Dabigatran Etexilate Mesyl [Pradaxa 150 MG (*)] 150 mg PO BID #0 09/04/17 [Last Taken 09/27/17 AM] Ascorbic Acid [Vitamin C 500 mg (*)] 500 mg PO BID 09/27/17 [Last Taken Unknown] Psyllium Husk (with Sugar) [Metamucil Packet] 1 each PO DAILY 09/27/17 [Last Taken 09/27/17 AM] Ciprofloxacin HCl [Ciprofloxacin] 500 mg PO BID #12 tablet 09/28/17 [Last Taken Unknown] Discharge Medications: Refer to the Discharge Home Medication list for PRN reason. - Orders Services needed: Physical Therapy, Occupational Therapy Isolation Type: CDIFF Isolation, Contact Isolation, Droplet Isolation Diet Recommendation: no restrictions on diet Diet Texture: Regular Texture Diet Additional Instructions: FU with PCP this week FU with Urology - Follow Up Care Current Providers and Referrals: Yessenia Rodrigez MD [Medical Doctor] - As per Instructions
--- NOTE | 2017-09-28 13:49 | GDS ---
[f rep st] DISCHARGE SUMMARY DIAGNOSIS: 1. Syncope likely vasovagal/dehydration. 2. Atrial fibrillation. 3. Hypertension. 4. Obstructive sleep apnea. 5. Multiple sclerosis. 6. Cervical stenosis, recent C-spine surgery. 7. Urinary retention. Recently, Magallanes catheter placed. 8. Urinary tract infection. PROCEDURES DONE: 1. Carotid Doppler study: Mild carotid bulb plaque, but no evidence of hemodynamically significant s tenosis. 2. Head CT without contrast showing nothing acute. HOSPITAL COURSE: Mr. Roman is a 71-year-old man with a history of MS and recent urinary retention. He was in the emergency department the day prior to admission with urinary retention, severe nausea a nd abdominal pain and had a Magallanes placed. He had significant release and went home after that. When he went home, he had a syncopal event with prodrome. He was admitted to the hospital overnight. Ca rotid Dopplers were done due to recent cervical spine surgery, which was normal. He had no neck pain or radicular symptoms down his arms. He started to develop increasing bladder discomfort and had so me hematuria as well as pyuria and I suspect he may have a urinary tract infection after the catheter was placed. This in addition to dehydration and poor p.o. intake, likely led to his syncopal event. His telemetry was normal. At this time, he was feeling better after hydration, had no more syncopa l events and no more symptoms; however, continued to complain of catheter discomfort, so he will be t reated for urinary tract infection and plans on following up with his urologist this week. The rest of his hospital course was unremarkable. He appears to be close to baseline, but may be a little dec onditioned, so will be sent home with home care PT and OT. CONDITION ON DISCHARGE: Good. Vital signs are stable. He has no symptoms of dizziness or lighthead edness. DISCHARGE MEDICATIONS: Please see discharge medication form. FOLLOW UP: Followup will be with his primary care provider and with Urology. Total time spent with the patient on day of discharge and coordination of care is 35 minutes. /[id number]/MODL
--- NOTE | 2017-09-28 16:10 | ASMTLACE ---
LACE Length of stay for Answers: 1 day current admission Acuity / Level of Answers: No Care: Did the patient have an inpatient admission? Comorbidities - select Answers: Other Notes: MS, JUAN ANTONIO, Afib/flutter, HTN all that apply , Cervical stenosis # of Emergency department Answers: 1-2 visits in the last 6 months Score: 3 Date Signed: 09/28/2017 04:09 PM Electronically Signed By:Carole Mccarthy LCSW
--- NOTE | 2017-09-28 16:22 | ASMTCMCOM ---
CM Note CM Note Notes: 71yr old male admitted for Syncopy, Urinart retention, UTI. He has a Hx of Afib/flutter, HTN, JUAN ANTONIO, MS, Cervical stenosis, Finger cellulitis. Came into ER with urinary retention, chung placed. concerned that he may have become dehydrated and then had a syncopal episode. Patient lives with his . CM to follow for discharge needs. Date Signed: 09/28/2017 04:22 PM Electronically Signed By:Carole Mccarthy LCSW
--- NOTE | 2017-09-28 16:24 | ASMTDCNOTE ---
Case Management Discharge Discharge Order Complete? Answers: Yes Patient to Obtain Answers: via Family Medications Transportation Arranged Answers: Family/Friends Transport will Pick (Date 09/28/2017 03:00 PM & Time) Faxed Final Orders Answers: Yes Notes: [facility] Family Notified Answers: Yes Notes: to transport Discharge Comments Notes: Patient has been discharged home with and [facility]: PT/OT. Date Signed: 09/28/2017 04:23 PM Electronically Signed By:Carole Mccarthy LCSW
--- NOTE | 2017-09-28 16:29 | ASDISCHSUM ---
Discharge Information Plan Status:Home with Home Health Medically Cleared to Leave:09/28/2017 Discharge Date:09/28/2017 03:32 PM CM D/C Disposition:Home Health Service ADT D/C Disposition:Home Health Service Projected Discharge Date:09/28/2017 03:00 PM Transportation at D/C:Family Discharge Delay Reason: Follow-Up Date:09/28/2017 03:00 PM Discharge Slot:2 - 12:01 pm - 18:00 pm Final Diagnosis:fib, HTN, JUAN ANTONIO, MS, UTI, Urinary retention, Cervical stenosis Placement Information Referral Type:*Home Health Care Services Referral ID:[id number] Provider [facility] [address] [facility] [address] Address 2: City:[place] Selection Factors: State:[place] Patient Contact Information Contact Name:EMMANUEL Relationship: Address:[address] City:[place] Alternate Phone: State/Zip Code:[place] [address] Email: Financial Information Financial Class:Medicare Primary Plan Desc:MEDICARE OUTPATIENT Primary Plan Number:[id number] Secondary Plan Desc:RASHEED SAVAGEEMBANDAR Secondary Plan Number:[id number] Assessment Information LACE LACE Length of stay for Answers: 1 day current admission Acuity / Level of Answers: No Care: Did the patient have an inpatient admission? Comorbidities - select Answers: Other Notes: MS, JUAN ANTONIO, Afib/flutter, HTN all that apply , Cervical stenosis # of Emergency department Answers: 1-2 visits in the last 6 months Score: 3 Date Signed: 09/28/2017 04:09 PM Electronically Signed By:Carole Mccarthy LCSW [facility] Progress Note CM Note CM Note Notes: 71yr old male admitted for Syncopy, Urinart retention, UTI. He has a Hx of Afib/flutter, HTN, JUAN ANTONIO, MS, Cervical stenosis, Finger cellulitis. Came into ER with urinary retention, chung placed. concerned that he may have become dehydrated and then had a syncopal episode. Patient lives with his . CM to follow for discharge needs. Date Signed: 09/28/2017 04:22 PM Electronically Signed By:Carole Mccarthy LCSW Case Management Discharge Plan Note Case Management Discharge Discharge Order Complete? Answers: Yes Patient to Obtain Answers: via Family Medications Transportation Arranged Answers: Family/Friends Transport will Pick (Date 09/28/2017 03:00 PM & Time) Faxed Final Orders Answers: Yes Notes: [facility] Family Notified Answers: Yes Notes: to transport Discharge Comments Notes: Patient has been discharged home with and [facility]: PT/OT. 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
== END 2017-09-28 15:32 | disposition home health service (06) ==
LOC: EDUNIT# → F2W 20:50
PROVIDERS: ADMIT Internal Medicine; ATTEND Internal Medicine
DX: R55 Syncope and collapse (principal); I48.91 Unspecified atrial fibrillation; I10 Essential (primary) hypertension; G47.33 Obstructive sleep apnea (adult) (pediatric); G35 Multiple sclerosis; M48.02 Spinal stenosis, cervical region; R33.9 Retention of urine, unspecified; N39.0 Urinary tract infection, site not specified; E86.9 Volume depletion, unspecified
CPT/HCPCS: 70450; 93005; 93880; 97116; 97161; 97166; 97530; 97535; G0378; G8978; G8979; G8987; G8988; J0696; 84484-PO

== ENCOUNTER → 2017-10-23 | Outpatient (CLI) | payer OTHER | LOC: FIMAGING 11:59 | PROVIDERS: ATTEND Physician Assistant | DX: Z98.1 Arthrodesis status (principal); M50.322 Other cervical disc degeneration at C5-C6 level; M40.202 Unspecified kyphosis, cervical region ==

== ENCOUNTER → 2017-12-29 | Outpatient (CLI) | payer OTHER | LOC: FIMAGING 14:22 | PROVIDERS: ATTEND Nurse Practitioner | DX: M48.02 Spinal stenosis, cervical region (principal); M54.12 Radiculopathy, cervical region; M54.2 Cervicalgia; Z98.1 Arthrodesis status ==

== ENCOUNTER → 2018-01-30 | Outpatient (CLI) | payer OTHER | LOC: FIMAGING 14:23 | PROVIDERS: ATTEND Nurse Practitioner | DX: Z09 Encounter for follow-up examination after completed treatment for conditions other than malignant neoplasm (principal); Z98.1 Arthrodesis status; M50.31 Other cervical disc degeneration, high cervical region ==

== ENCOUNTER → 2018-04-28 | Outpatient (CLI) | payer OTHER | LOC: FLAB 09:54 | PROVIDERS: ATTEND Nurse Practitioner | DX: Z09 Encounter for follow-up examination after completed treatment for conditions other than malignant neoplasm (principal); Z98.1 Arthrodesis status; M50.30 Other cervical disc degeneration, unspecified cervical region ==